=== PATIENT | male | born 1955 | race Caucasian/White ===

== ENCOUNTER 2023-08-03 19:16 | Emergency (ER) | payer MEDICARE ==
[~2023-08-03] VITALS: Ht 182.9 cm; Wt 84.1 kg
[2023-08-03 19:29] VITALS: BP 152/80; PULSE 66; RESP 16; TEMP 98
[2023-08-03] MEDS: ACETAMINOPHEN/CODEINE 300-30 MG TABLET PO ONE (20:25)
[2023-08-03] MEDS: ERYTHROMYCIN 0.5% 3.5 GM TUBE OPHTHALMIC OINTMENT OD ONE (20:25)
[2023-08-03] MEDS ORDERED: ACET-2080 PO (21:02)
== END 2023-08-03 22:06 | disposition home or self-care (01) ==
LOC: EMS 19:18
DX: S00.11XA Contusion of right eyelid and periocular area, initial encounter (principal); H10.9 Unspecified conjunctivitis; X58.XXXA Exposure to other specified factors, initial encounter; Y93.89 Activity, other specified; Y92.89 Other specified places as the place of occurrence of the external cause; Y99.8 Other external cause status
CPT/HCPCS: 99283